=== PATIENT | male | born 1985 | race Caucasian/White ===

== ENCOUNTER 2017-01-12 21:52 | Emergency (ER) | payer OTHER ==
[2017-01-12] MEDS ORDERED: PROPARACAINE 0.5% OPHTH DROPS 15 ML BTL LEFT EYE STA (22:39)
--- NOTE | 2017-01-12 22:43 | ED ---
Eye Problem HPI - General Chief complaint: Eye Problems Stated complaint: Eye Problem Time Seen by Provider: 01/12/17 22:29 Source: patient Mode of arrival: ambulatory Limitations: no limitations - History of Present Illness Initial comments: 31-year-old male patient presented to emergency department today for evaluation of left eye redness, tearing, and pain. Patient states that symptoms started 4 days ago. He states initially the sensation felt like gritty sand in his eye. He states that since then the pain has become worse, has extended to the surrounding eye area. He states that light, especially fluorescent light makes the pain worse. States he has had clear drainage. He states he is having blurred vision, states when he woke up this morning had about a 15 minute episode of "color distortion". He denies any pain with movement of the eye, diplopia, flashes of lights, headache, dizziness, weakness, fever, chills, or any other physical problems. Denies any previous issues with the eye. Denies any seasonal ALLERGIES. He does not wear contact lenses or glasses. - Related Data Home Medications Medication Instructions Recorded Confirmed Amantadine HCl [Symmetrel] 200 mg PO BID 01/12/17 01/12/17 Armodafinil [Nuvigil] 250 mg PO DAILY 01/12/17 01/12/17 Dextroamphetamine/Amphetamine 10 mg PO BID@1000,1200 01/12/17 01/12/17 [Adderall Xr] Dextroamphetamine/Amphetamine 10 mg PO DAILY@1200 01/12/17 01/12/17 [Adderall] Divalproex ER [Depakote ER] 1,000 mg PO HS 01/12/17 01/12/17 Nadolol [Corgard] 20 mg PO DAILY 01/12/17 01/12/17 Xyrem (Sodium Oxybate) 0.5g/M L 3 ml PO BID 01/12/17 01/12/17 Zonisamide [Zonegran] 200 mg PO BID 01/12/17 01/12/17 Allergies Allergy/AdvReac Type Severity Reaction Status Date / Time codeine Allergy Anaphylaxis Verified 01/12/17 22:28 phenytoin [From Dilantin] Allergy Rash/Hives Verified 01/12/17 22:28 tuberculin,PPD,multi-puncture Allergy Swelling/Compartment Verified 01/12/17 22 :28 Syndrome Review of Systems ROS Statement: Those systems with pertinent positive or pertinent negative responses have been documented in the HPI. ROS Other: All systems not noted in ROS Statement are negative. Past Medical History Past Medical History: Seizure Disorder Additional Past Medical History / Comment(s): narcolepsy, cardiac arrest History of Any Multi-Drug Resistant Organisms: None Reported Past Surgical History: Heart Catheterization Past Psychological History: No Psychological Hx Reported Smoking Status: Never smoker Past Alcohol Use History: Occasional Past Drug Use History: None Reported General Exam Limitations: no limitations General appearance: alert, in no apparent distress Eye exam: Present: PERRL, EOMI, conjunctival injection, other (Intraocular pressure is 17-20 mmHg. Fluoroscein stain with Wood's lamp examination was negative for any abrasion, laceration, or acute injury.). Absent: scleral icterus, nystagmus, periorbital swelling, periorbital tenderness ENT exam: Present: normal exam, normal oropharynx, mucous membranes moist Respiratory exam: Present: normal lung sounds bilaterally. Absent: respiratory distress, wheezes, rales, rhonchi, stridor Cardiovascular Exam: Present: regular rate, normal rhythm, normal heart sounds. Absent: systolic murmur, diastolic murmur, rubs, gallop, clicks Neurological exam: Present: alert, oriented X3, CN II-XII intact Psychiatric exam: Present: normal affect, normal mood Skin exam: Present: warm, dry, intact, normal color. Absent: rash Course Vital Signs 01/12/17 21:57 Temperature 98.2 F Pulse Rate 80 Respiratory 20 Rate Blood Pressure 130/86 O2 Sat by Pulse 98 Oximetry Medical Decision Making - Medical Decision Making 31-year-old male patient presents to emergency department today for evaluation of left eye discomfort, redness and tearing. Physical examination did reveal conjunctival injection and intact EOM. Did consult with my attending Dr. Camarena who was in and evaluated the patient himself. He did speak to Dr. Zafar who will see the patient in the office tomorrow. He recommended cyclopentolate eyedrops, prednisone acetate eyedrops, and an antibiotic eyedrop. Patient will be given one drop of the cyclopentolate here in the department and then given the other drops for home. Did educate patient regarding importance of emergent follow-up. He is instructed to return here immediately for any new, worsening, or concerning symptoms. Patient verbalized understanding and agrees with this plan. Disposition Clinical Impression: Iritis Disposition: HOME SELF-CARE Condition: Good Instructions: Tobramycin (Into the eye), Iritis (ED) Additional Instructions: Call ore feeder tomorrow for an appointment. Use prednisone acetate drops 1 drop to the left eye 4 times daily. Use tobramycin drops 1 drop to the left eye every 4-6 hours. You may administer the drops together, no need to wait in between. Follow up with primary care provider in 1-2 days for a recheck. Return immediately to emergency for any new, worsening, or concerning symptoms. Referrals: None,Stated [Primary Care Provider] - 1-2 days Luis Daniel Zafar MD [STAFF PHYSICIAN] - 1-2 days Time of Disposition: 23:45
[2017-01-12] MEDS ORDERED: prednisoLONE ACETATE 1% OPHTH DROPS 1 ML BTL LEFT EYE STA (23:38)
[2017-01-12] MEDS ORDERED: CYCLOPENTOLATE 1% OPHTH SOLN 2 ML BTL LEFT EYE STA (23:38)
[2017-01-12] MEDS ORDERED: TOBRAMYCIN 0.3% OPHTH DROPS 5 ML BTL LEFT EYE STA (23:41)
[2017-01-13 00:08] VITALS: BP 141/72; PULSE 91; RESP 18; TEMP 98.1
== END 2017-01-13 00:08 | disposition home or self-care (01) ==
LOC: EC 21:52
DX: H20.9 Unspecified iridocyclitis (principal); G40.909 Epilepsy, unspecified, not intractable, without status epilepticus; Z79.899 Other long term (current) drug therapy; Z88.5 Allergy status to narcotic agent; Z88.8 Allergy status to other drugs, medicaments and biological substances; Z91.048 Other nonmedicinal substance allergy status; Z86.69 Personal history of other diseases of the nervous system and sense organs
CPT/HCPCS: 99283

== ENCOUNTER 2017-03-22 21:57 | Emergency (ER) | payer OTHER ==
[2017-03-22 22:17] VITALS: RESP 20; TEMP 98.2
--- NOTE | 2017-03-22 23:35 | ED ---
General Adult HPI - General Chief complaint: Recheck/Abnormal Lab/Rx Stated complaint: Med Refill Time Seen by Provider: 03/22/17 22:54 Source: patient, RN notes reviewed, old records reviewed Mode of arrival: ambulatory Limitations: no limitations - History of Present Illness Initial comments: Patient is a 31-year-old male present emergency Department chief complaint of being a prescription refill for his Adderall XR and Adderall. 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 He is currently contracted through [facility], and reports that he has not been able to have his primary care provider refill these prescriptions. He was only supposed to be in [facility] on for a short period of time, and does not have enough medication for the rest of his stay.. He did make an appointment with her primary care provider, Dr. Del Angel. They did cancel his appointment on him that was supposed to be on . Patient had shortly after getting another appointment with Dr. Robles. He goes here next . He is requesting a prescription to be filled for only the next 7 days. Patient denies any other physical symptoms.Patient denies any recent fever, chills, shortness of breath, chest pain, back pain, abdominal pain, nausea vomiting, numbness or tingling, dysuria or hematuria, constipation or diarrhea, headaches or visual changes, or any other current symptoms - Related Data Home Medications Medication Instructions Recorded Confirmed Amantadine HCl [Symmetrel] 200 mg PO BID 01/12/17 03/22/17 Armodafinil [Nuvigil] 250 mg PO DAILY 01/12/17 03/22/17 Dextroamphetamine/Amphetamine 10 mg PO BID@1000,1200 01/12/17 03/22/17 [Adderall Xr] Dextroamphetamine/Amphetamine 10 mg PO DAILY@1500 01/12/17 03/22/17 [Adderall] Divalproex ER [Depakote ER] 1,000 mg PO HS 01/12/17 03/22/17 Nadolol [Corgard] 20 mg PO DAILY 01/12/17 03/22/17 Xyrem (Sodium Oxybate) 0.5g/M L 3 mg PO BID@0200,2200 01/12/17 03/22/17 Zonisamide [Zonegran] 200 mg PO BID 01/12/17 03/22/17 Previous Rx's Medication Instructions Recorded Dextroamphetamine/Amphetamine 10 mg PO BID #14 cap 03/22/17 [Adderall Xr] Dextroamphetamine/Amphetamine 10 mg PO DAILY #7 tab 03/22/17 [Adderall] Allergies Allergy/AdvReac Type Severity Reaction Status Date / Time codeine Allergy Anaphylaxis Verified 03/22/17 23:00 phenytoin [From Dilantin] Allergy Rash/Hives Verified 03/22/17 23:00 tuberculin,PPD,multi-puncture Allergy Swelling/Compartment Verified 03/22/17 23 :00 Syndrome Review of Systems ROS Statement: Those systems with pertinent positive or pertinent negative responses have been documented in the HPI. ROS Other: All systems not noted in ROS Statement are negative. Past Medical History Past Medical History: Seizure Disorder Additional Past Medical History / Comment(s): narcolepsy, cardiac arrest History of Any Multi-Drug Resistant Organisms: None Reported Past Surgical History: Heart Catheterization Past Psychological History: ADD/ADHD Smoking Status: Never smoker Past Alcohol Use History: Occasional Past Drug Use History: None Reported General Exam - General Exam Comments Initial Comments: This is an alert and oriented 31-year-old male. No acute distress. Limitations: no limitations General appearance: alert, in no apparent distress Head exam: Present: atraumatic, normocephalic, normal inspection Eye exam: Present: normal appearance, PERRL, EOMI. Absent: scleral icterus, conjunctival injection, periorbital swelling ENT exam: Present: normal exam, mucous membranes moist Neck exam: Present: normal inspection. Absent: tenderness, meningismus, lymphadenopathy Respiratory exam: Present: normal lung sounds bilaterally. Absent: respiratory distress, wheezes, rales, rhonchi, stridor Cardiovascular Exam: Present: regular rate, normal rhythm, normal heart sounds. Absent: systolic murmur, diastolic murmur, rubs, gallop, clicks Neurological exam: Present: alert, oriented X3 Psychiatric exam: Present: normal affect, normal mood Skin exam: Present: warm, dry, intact, normal color. Absent: rash Course Vital Signs 03/22/17 03/22/17 22:13 23:43 Temperature 98.2 F 98.2 F Pulse Rate 78 80 Respiratory 20 20 Rate Blood Pressure 129/84 141/66 O2 Sat by Pulse 99 98 Oximetry Medical Decision Making - Medical Decision Making Patient is a 31-year-old male present emergency Department chief complaint of being a prescription refill for his Adderall XR and Adderall. 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 He is currently contracted through [facility], and reports that he has not been able to have his primary care provider refill these prescriptions. At this time with patient's profession being clinical psychiatrist, I do trust the patient to take these medications appropriately. I will give him a prescription for Adderall XR as he takes daily, as well as albuterol. Patient will only be written for these prescriptions for approximately one week. He will follow up with Dr. Buenrostro next in regards to further prescriptions. Patient understands treatment plan will comply. Return parameters were discussed. Disposition Clinical Impression: Medication refill Disposition: HOME SELF-CARE Condition: Good Instructions: Medicine Refill (ED) Additional Instructions: Recommended to follow-up with your primary care provider regards to further refills. Return to emergency department if any alarming signs or symptoms occur. Prescriptions: Dextroamphetamine/Amphetamine [Adderall Xr] 10 mg PO BID #14 cap Dextroamphetamine/Amphetamine [Adderall] 10 mg PO DAILY #7 tab Referrals: Stephanie Robles MD [Primary Care Provider] - 1-2 days Time of Disposition: 23:31
[2017-03-22 23:43] VITALS: BP 141/66; PULSE 80
== END 2017-03-22 23:47 | disposition home or self-care (01) ==
LOC: EC 21:57
DX: Z76.0 Encounter for issue of repeat prescription (principal); F90.9 Attention-deficit hyperactivity disorder, unspecified type; G40.909 Epilepsy, unspecified, not intractable, without status epilepticus; Z88.5 Allergy status to narcotic agent; Z88.8 Allergy status to other drugs, medicaments and biological substances; Z91.048 Other nonmedicinal substance allergy status; Z79.899 Other long term (current) drug therapy
CPT/HCPCS: 99282